=== PATIENT | female | born 1990 ===

== ENCOUNTER 2018-10-13 13:09 | Emergency (ER) | payer BC, OTHER ==
[2018-10-13 13:46] VITALS: BP 103/70
--- NOTE | 2018-10-13 13:54 | UC ---
Skin Complaint HPI - HPI Summary HPI Summary: 28-year-old female who has a rash around her umbilicus. She states in late July early August she had a tick bite. She states over the past couple of days she has had some joint aches starting in her right jaw (for which she saw a dentist and no problems were identified), right sided joint aches involving right arm and hip and today her left hip. She "just doesn't feel well today". She denies any fever or chills. She also states she has a mild sore throat today. - History of Current Complaint Chief Complaint: UCGeneralIllness Time Seen by Provider: 10/13/18 13:53 Stated Complaint: MUSCLE PAIN TICK BITE Hx Obtained From: Patient Hx Last Menstrual Period: 10/11/18 ?: No Onset/Duration: Gradual Onset Skin Exposure Onset/Duration: Weeks Ago - Patient had a tick bite late July early August however the symptoms did not start until the past few days. Timing: Constant Onset Severity: Mild Current Severity: Moderate Pain Intensity: 8 Location: Generalized - Patient just has scattered body aches with the right jaw right shoulder right arm and right hip left hip Character: Painful Aggravating Factor(s): Nothing Alleviating Factor(s): Nothing Associated Signs & Symptoms: Positive: Negative - Patient states today she just doesn't feel well. Related History: Insect Bite/Sting - Tick bite in late July early August. - Allergy/Home Medications Allergies/Adverse Reactions: Allergies Allergy/AdvReac Type Severity Reaction Status Date / Time Penicillins Allergy unk Verified 10/13/18 13:46 PMH/Surg Hx/FS Hx/Imm Hx Previously Healthy: Yes - Surgical History Surgical History: None - Family History Known Family History: Positive: Non-Contributory - Social History Alcohol Use: Occasionally Substance Use Type: None Smoking Status (MU): Never Smoked Tobacco Review of Systems All Other Systems Reviewed And Are Negative: Yes Skin: Positive: Rash - Patient has a rash around her umbilicus with an irregular border approximately 5.0 cm in diameter. Because of where it is located around her umbilicus it does not gives the appearance of a bull's-eye rash. She denies any trauma to the umbilicus area denies "digging" in her umbilicus. ENT: Positive: Sore Throat - She developed a sore throat today. Musculoskeletal: Positive: Arthralgia - Patient has scattered body aches today. Is Patient Immunocompromised?: No Physical Exam Triage Information Reviewed: Yes Appearance: Well-Appearing, No Pain Distress, Well-Nourished Vital Signs: Initial Vital Signs Temp 98 F 10/13/18 13:43 Pulse 88 10/13/18 13:43 Resp 18 10/13/18 13:43 BP 103/70 10/13/18 13:43 Pulse Ox 100 10/13/18 13:43 Vital Signs Reviewed: Yes Eyes: Positive: Conjunctiva Clear ENT: Positive: Pharyngeal erythema - Tonsils are mildly erythematous with no exudate however the left tonsil is larger than the right she states this is normal., Uvula midline. Negative: Tonsillar exudate, Trismus, Muffled voice, Hoarse voice Neck: Positive: Supple, Nontender, No Lymphadenopathy Respiratory: Positive: Lungs clear, Normal breath sounds, No respiratory distress, No accessory muscle use Cardiovascular: Positive: RRR, No Murmur, Pulses Normal, Brisk Capillary Refill Abdomen Description: Positive: Nontender, No Organomegaly, Soft Bowel Sounds: Positive: Present Musculoskeletal Exam: Normal Neurological Exam: Normal Psychological Exam: Normal Skin: Positive: Rashes - Rash around the umbilicus with an irregular border approximate 5 cm in diameter. Course/Dx - Course Course Of Treatment: Patient has been comfortable here, rapid strep test was negative. I'm titers were drawn however I am going to treat the patient prophylactically for Lyme disease because of the history of the tick, body aches, rash that is present and we will call her with the results of the titers. She was advised to go to the emergency room if any worsening symptoms. - Diagnoses Provider Diagnosis: Lyme disease Discharge - Sign-Out/Discharge Documenting (check all that apply): Patient Departure All imaging exams completed and their final reports reviewed: No Studies - Discharge Plan Condition: Fair Disposition: HOME Prescriptions: DOXYcycline CAP(*) [DOXYcycline 100MG CAP(*)] 100 mg PO BID 14 Days #28 cap Patient Education Materials: Lyme Disease (ED), Pharyngitis (ED) Referrals: Lali Abernathy NP [Nurse Practitioner] - Additional Instructions: Do not eat or drink dairy products, multivitamins or antacids 2 hours before you take the doxycycline and 2 hours after you take the doxycycline, however take the doxycycline with food. Definite follow-up with your primary care provider or the [facility] for any further concerns or any worsening symptoms. We will call you with the results of the Lyme titer. If it is positive then you will continue the doxycycline and if it is negative then you may discontinue the doxycycline. - Billing Disposition and Condition Condition: FAIR Disposition: Home
--- NOTE | 2018-10-14 16:04 | UC ---
- Progress Note Progress Note: Lyme negative. May stop antibiotic. F/u with PCP if symptoms persist Course/Dx - Diagnoses Provider Diagnoses: Lyme disease Discharge - Sign-Out/Discharge Documenting (check all that apply): Post-Discharge Follow Up All imaging exams completed and their final reports reviewed: No Studies - Discharge Plan Condition: Fair Disposition: HOME Prescriptions: DOXYcycline CAP(*) [DOXYcycline 100MG CAP(*)] 100 mg PO BID 14 Days #28 cap Patient Education Materials: Lyme Disease (ED), Pharyngitis (ED) Referrals: Lali Abernathy NP [Nurse Practitioner] - Additional Instructions: Do not eat or drink dairy products, multivitamins or antacids 2 hours before you take the doxycycline and 2 hours after you take the doxycycline, however take the doxycycline with food. Definite follow-up with your primary care provider or the [facility] for any further concerns or any worsening symptoms. We will call you with the results of the Lyme titer. If it is positive then you will continue the doxycycline and if it is negative then you may discontinue the doxycycline. - Billing Disposition and Condition Condition: FAIR Disposition: Home
== END 2018-10-13 14:31 | disposition home or self-care (01) ==
LOC: UCEAST 13:09
DX: A69.20 Lyme disease, unspecified (principal); Z88.0 Allergy status to penicillin
CPT/HCPCS: 36415; 86618; 87651; 99212; G0463